=== PATIENT | male | born 1935 | race Caucasian/White ===

== ENCOUNTER → 2017-06-29 | Outpatient (CLI) | payer MEDICARE ==
--- NOTE | 2017-06-29 12:37 | RAD ---
Chest, 2 views, 06/29/2017: History: Cough, shortness of breath The heart is within normal limits in size. There is calcific plaquing of the aorta. The lungs are hyperexpanded. There is a mild streaky opacity in the left base posteriorly. This may be due to atelectasis or scarring. There is a minimal opacity projected over the right middle lobe medially on the PA view. This may correspond to a density projected over the anterior aspect of the heart on the lateral view, although a prominent epicardial fat pad could be producing that opacity. There are mild scattered degenerative changes in the thoracic spine. IMPRESSION: 1. Hyperexpansion of the lungs suggesting emphysema. 2. Mild bibasilar opacities compatible with scarring and/or atelectasis. A component of pneumonia or even a neoplastic etiology cannot be excluded. Radiographic and/or CT follow-up is suggested.
== END | disposition home or self-care (01) ==
LOC: PMG 10:05
PROVIDERS: ATTEND Physician Assistant
DX: R91.8 Other nonspecific abnormal finding of lung field (principal); I70.0 Atherosclerosis of aorta; M47.894 Other spondylosis, thoracic region
CPT/HCPCS: 71020

== ENCOUNTER 2017-12-28 08:10 | Emergency (ER) | payer MEDICARE ==
[~2017-12-28] VITALS: Ht 167.6 cm; Wt 70.3 kg
--- NOTE | 2017-12-28 08:43 | EKG ---
[address] [address] Test Date: 2017-12-28 Test Time: 08:36:43 Pat Name: BROWN KULKARNI Department: Room: Gender: M [employer] Hanger: : 1935 Requested By: DUNG JAIME Order Number: [id number] Reading MD: Lance Brewster MD Measurements Intervals [place] Rate: 96 P: 41 OR: 166 QRS: 65 QRSD: 94 T: 56 QT: 348 QTc: 441 Interpretive Statements SINUS RHYTHM [email or web address] Electronically Signed On 01-01-2018 14:10:39 CDT by Lance Brewster MD
--- NOTE | 2017-12-28 08:47 | PHYS DOC ---
Past History Past Medical History: Cancer, Hypothyroid Past Surgical History: Colectomy, Other Alcohol Use: None Drug Use: None Adult General Chief Complaint Chief Complaint: SHORTNESS OF BREATH [facility] HPI Patient is a very pleasant 82-year-old male presents for evaluation of shortness of breath. He states that over the last few days he has been getting somewhat short of breath but he was able to completely mow his lawn yesterday without difficulty. Today while getting into the shower this morning he became suddenly more short of breath and felt like he could not breathe and thought he was going to pass out. His was at home and states that his color did not change. He woke up this morning he felt fine. He has a distant history of colon cancer but is not currently being treated for any cancer and has no history of DVT or PE. He used to smoke but does not currently smoke and is not treated for COPD. He has no pleuritic chest wall pain or any chest pain. He denies productive cough, hemoptysis, chest pain, back pain, abdominal pain, fevers or chills, nausea or vomiting, diaphoresis or syncope. He is A&Ox 4, speaking in full sentences, and appears to be in no distress at this time. No recent long travel or surgery, no calf/lower leg pain. Review of Systems Review of Systems Constitutional: Denies fever or chills [] Eyes: Denies change in visual acuity, redness, or eye pain [] HENT: Denies nasal congestion or sore throat [] Respiratory: +cough and sob Cardiovascular: No additional information not addressed in HPI [] GI: Denies abdominal pain, nausea, vomiting, bloody stools or diarrhea [] : Denies dysuria or hematuria [] Musculoskeletal: Denies back pain or joint pain [] Integument: Denies rash or skin lesions [] Neurologic: Denies headache, focal weakness or sensory changes [] Endocrine: Denies polyuria or polydipsia [] All other systems were reviewed and found to be within normal limits, except as documented in this note. Allergies Allergies Allergies Coded Allergies Type Severity Reaction Last Updated Verified No Known Drug Allergies 12/28/17 No Physical Exam Physical Exam Constitutional: Well developed, well nourished, no acute distress, non-toxic appearance. [] HENT: Normocephalic, atraumatic, bilateral external ears normal, oropharynx moist, no oral exudates, nose normal. [] Eyes: PERRLA, EOMI, conjunctiva normal, no discharge. [] Neck: Normal range of motion, no tenderness, supple, no stridor. [] Cardiovascular:Heart rate regular rhythm, no murmur [] Lungs & Thorax: Bilateral breath sounds clear to auscultation [] Abdomen: Bowel sounds normal, soft, no tenderness, no masses, no pulsatile masses. [] Skin: Warm, dry, no erythema, no rash. [] Back: No tenderness, no CVA tenderness. [] Extremities: No tenderness, no cyanosis, no clubbing, ROM intact, no edema. [] Neurologic: Alert and oriented X 3, normal motor function, normal sensory function, no focal deficits noted. [] Psychologic: Affect normal, judgement normal, mood normal. [] Current Patient Data Vital Signs Vital Signs Date Time Temp Pulse Resp B/P (MAP) Pulse Ox O2 Delivery O2 Flow Rate FiO2 12/28/17 08:28 98.3 100 24 92 Room Air EKG EKG Normal sinus rhythm, rate of 96, incomplete right bundle-branch block is present , no acute ischemic findings noted, no STEMI, reviewed and interpreted by [facility] Radiology/[place] [address] IMAGING REPORT Signed PATIENT: BROWN KULKARNI ACCOUNT: [id number] : 1935 LOCATION: ER AGE: 82 SEX: M EXAM STATUS: REG ER ORD. PHYSICIAN: DUNG JAIME DO REASON: sob, elevated ddimer PROCEDURE: CT ANGIOGRAPHY CHEST PQRS Compliance Statement: One or more of the following individualized dose reduction techniques were utilized for this examination: 1. Automated exposure control 2. Adjustment of the mA and/or kV according to patient size 3. Use of iterative reconstruction technique CT ANGIOGRAPHY CHEST Clinical Indication: PT HAS HAD COUGH FOR ONE MONTH AND THIS LAST WEEK HAS BEEN SHORT OF BREATH, LABS SHOWED ELEVATED D DIMER Technique: Helical CT of the chest was performed after the administration of 75 cc Omnipaque 300 intravenous contrast according to PE protocol. Axial and coronal reconstructions were obtained. 3-D MIP images were constructed to better evaluate the pulmonary arteries. Findings: Pulmonary arteries are adequately opacified. There is no evidence of pulmonary embolism. No thoracic aortic dissection. Trace pericardial fluid. Cardiac size normal. Mild mitral annular calcification. Coronary artery disease. Mild bilateral hilar adenopathy. Subcentimeter mediastinal lymph nodes. There are retained secretions or mucous in the trachea. Mild peribronchial thickening in the basilar lower lobes. Mild right lower lobe atelectasis. Anterior right upper lobe there is peribronchial thickening and tree-in-bud opacities. There are 2 subpleural subcentimeter nodular opacities in the lingula, image 82. 5 mm nodule in the subpleural left lower lobe, image 114. Calcified granulomas right lung. 13 mm right adrenal adenoma. 12 mm left adrenal adenoma. Degenerative spondylosis of the thoracic spine. IMPRESSION: 1. There is no CT evidence of pulmonary embolus. 2. Bilateral lower lobe bronchitis and anterior right upper lobe bronchitis and bronchiolitis. 3. There are a few nodular opacities in the lungs that may be infectious/inflammatory. Recommend noncontrast CT chest follow-up in 3 months when patient is asymptomatic. 4. Mild bilateral hilar adenopathy, may be reactive. Suggest attention on follow-up. 5. Small bilateral adrenal adenomas. Electronically signed by: Skinny Clifton MD (12/28/2017 10:01 AM) [id number] Course & Med Decision Making Course & Med Decision Making Pertinent Labs and Imaging studies reviewed. (See chart for details) @1005 - Patient updated on all lab and imaging results. His glucose is noted to be slightly elevated so informed him that this may be evidence of prediabetes. CT suggests some bronchitis versus bronchiolitis. The patient will go home and a prescription for albuterol, prednisone, and azithromycin. Patient to follow up with his primary care physician in the next 2-3 days. Advised the patient to return to the emergency Department immediately for difficult breathing, new or worsening symptoms. Workup today fails to reveal any emergent pathology and the patient is stable for discharge. Differential diagnosis included myocardial infarction, pericarditis, pneumonia, bronchitis, PE, heart failure, and anemia Dragon Disclaimer Dragon Disclaimer This electronic medical record was generated, in whole or in part, using a voice recognition dictation system. Departure Departure: Impression: Primary Impression: Bronchitis Additional Impression: Hyperglycemia Disposition: HOME, SELF-CARE Condition: STABLE Referrals: ANEUDY SHARIF (PCP) Patient Instructions: Bronchitis, Hyperglycemia Additional Instructions: Take the prescribed medications as directed to help with your bronchitis. Her blood sugar was slightly elevated today and he should follow-up with your primary care physician to have this repeated to make sure that you are not prediabetic. Return to the emergency Department immediately for difficult breathing, new or worsening symptoms. Scripts Azithromycin (AZITHROMYCIN TABLET) 250 Mg Tablet 250 MG PO DAILY for bronchitis for 5 Days, #5 TAB 0 Refills Prov: DUNG JAIME DO 12/28/17 Albuterol Sulfate (PROAIR HFA INHALER) 8.5 Gm Hfa.aer.ad 1 PUFF INH PRN Q6HRS PRN for SHORTNESS OF BREATH for 5 Days, #1 INHALER 0 Refills Prov: DUNG JAIME DO 12/28/17 Prednisone (PREDNISONE) 20 Mg Tablet 1 TAB PO DAILY for 5 Days, #5 TAB Prov: DUNG JAIME DO 12/28/17 Problem Qualifiers DUNG JAIME DO Dec 28, 2017 08:47
[2017-12-28 09:10] LABS: BASO # 0.1 x10^3/uL (0.0-0.2); BASO % 1 % (0-3); EOS # 0.3 x10^3/uL (0.0-0.7); EOS % 2 % (0-3); HEMATOCRIT 46.3 % (39.0-53.0); LYMPH % 8 % (24-48); MEAN CORPUSCULAR HEMOGLOBIN 32 pg (25-35); MEAN CORPUSCULAR HGB CONC 35 g/dL (31-37); MEAN CORPUSCULAR VOLUME 92 fL (79-100); MONO # 0.7 x10^3/uL (0.0-1.1); MONO % 5 % (0-9); NEUT # 10.5 x10^3uL (1.8-7.7); NEUT % 84 % (31-73); PLATELET COUNT 275 x10^3/uL (140-400); RED BLOOD COUNT 5.02 x10^6/uL (4.30-5.70); RED CELL DISTRIBUTION WIDTH 13.7 % (11.5-14.5); WHITE BLOOD COUNT 12.6 x10^3/uL (4.0-11.0)
--- NOTE | 2017-12-28 09:19 | RAD ---
Chest radiograph 12/28/2017 8:52 AM INDICATION: Shortness of breath COMPARISON: June 29, 2017 TECHNIQUE: Frontal and lateral views of the chest are provided. FINDINGS: The cardiomediastinal silhouette is within normal limits. There are no pleural effusions. Mild interstitial prominence may be seen with early pulmonary vascular congestion versus interstitial pneumonitis. There is no pneumothorax. The lungs are clear. No significant osseous abnormality is identified. IMPRESSION: Mild interstitial prominence may be seen with early pulmonary vascular congestion versus interstitial pneumonitis. Electronically signed by: Simin Cabezas MD (12/28/2017 9:16 AM) [facility]
[2017-12-28 09:25] LABS: ALBUMIN 3.4 g/dL (3.4-5.0); ALBUMIN/GLOBULIN RATIO 0.9 (1.0-1.7); CREATININE 1.1 mg/dL (0.7-1.3); GFR 63.8; TOTAL BILIRUBIN 0.8 mg/dL (0.2-1.0); TOTAL PROTEIN 7.4 g/dL (6.4-8.2)
[2017-12-28] MEDS ORDERED: IOHEXOL 300 MG/ML 75 ML VIAL. IV ONE (09:30)
--- NOTE | 2017-12-28 10:05 | RAD ---
PQRS Compliance Statement: One or more of the following individualized dose reduction techniques were utilized for this examination: 1. Automated exposure control 2. Adjustment of the mA and/or kV according to patient size 3. Use of iterative reconstruction technique CT ANGIOGRAPHY CHEST Clinical Indication: PT HAS HAD COUGH FOR ONE MONTH AND THIS LAST WEEK HAS BEEN SHORT OF BREATH, LABS SHOWED ELEVATED D DIMER Technique: Helical CT of the chest was performed after the administration of 75 cc Omnipaque 300 intravenous contrast according to PE protocol. Axial and coronal reconstructions were obtained. 3-D MIP images were constructed to better evaluate the pulmonary arteries. Findings: Pulmonary arteries are adequately opacified. There is no evidence of pulmonary embolism. No thoracic aortic dissection. Trace pericardial fluid. Cardiac size normal. Mild mitral annular calcification. Coronary artery disease. Mild bilateral hilar adenopathy. Subcentimeter mediastinal lymph nodes. There are retained secretions or mucous in the trachea. Mild peribronchial thickening in the basilar lower lobes. Mild right lower lobe atelectasis. Anterior right upper lobe there is peribronchial thickening and tree-in-bud opacities. There are 2 subpleural subcentimeter nodular opacities in the lingula, image 82. 5 mm nodule in the subpleural left lower lobe, image 114. Calcified granulomas right lung. 13 mm right adrenal adenoma. 12 mm left adrenal adenoma. Degenerative spondylosis of the thoracic spine. IMPRESSION: 1. There is no CT evidence of pulmonary embolus. 2. Bilateral lower lobe bronchitis and anterior right upper lobe bronchitis and bronchiolitis. 3. There are a few nodular opacities in the lungs that may be infectious/inflammatory. Recommend noncontrast CT chest follow-up in 3 months when patient is asymptomatic. 4. Mild bilateral hilar adenopathy, may be reactive. Suggest attention on follow-up. 5. Small bilateral adrenal adenomas. Electronically signed by: Skinny Clifton MD (12/28/2017 10:01 AM) [id number]
[2017-12-28] MEDS ORDERED: AZIT250T6 PO (10:14)
[2017-12-28] MEDS ORDERED: PRED20TA PO (10:14)
[2017-12-28] MEDS ORDERED: ALBU8.5H8 INH (10:14)
[2017-12-28 10:35] VITALS: BP 158/72
== END 2017-12-28 10:30 | disposition home or self-care (01) ==
LOC: ER 08:10
DX: J40 Bronchitis, not specified as acute or chronic (principal); R73.9 Hyperglycemia, unspecified; E03.9 Hypothyroidism, unspecified
CPT/HCPCS: 36415; 71046; 71275; 80053; 82553; 83880; 84484; 85025; 85379; 93005; 99285-25

== ENCOUNTER → 2018-05-23 | Outpatient (CLI) | payer MEDICARE ==
[~2018-05-23] MED LIST: ALBU8.5H8 INH; AZIT250T6 PO; PRED20TA PO
--- NOTE | 2018-05-23 13:13 | RAD ---
CT CHEST WO CONTRAST dated 05/23/2018 12:00 AM Indication: Abnormal chest CT follow-up pulmonary nodules and hilar adenopathy.follow up abnormal ct chest. Comparison: 03/30/2018. Technique: Contiguous axial imaging the chest performed without the administration of intravenous contrast. One or more of the following individualized dose reduction techniques were utilized for this examination: 1. Automated exposure control 2. Adjustment of the mA and/or kV according to patient size 3. Use of iterative reconstruction technique Findings: Heart size within normal limits. Tiny pericardial effusion. Scattered coronary calcifications. No mediastinal, hilar or axillary lymphadenopathy. Thyroid gland unremarkable. Previous described enlarged hilar lymph nodes are not apparent on this noncontrast exam. The central airways are patent. Mild diffuse bronchial wall thickening. Small subpleural nodules in the right upper lobe, right middle lobe and left lower lobe measure 2 to 3 mm in size age, stable from prior study. There are a few additional tiny subpleural nodules in the left upper lobe/lingula, unchanged. Mild emphysema. No new parenchymal nodule or mass. No pleural effusion. Limited images of the upper abdomen unremarkable. No acute bony abnormality. Multilevel spondylosis. IMPRESSION: 1. Small noncalcified pulmonary nodules scattered throughout both lungs, nonspecific but unchanged from prior study. 2. Interval improvement in reticular nodular tree-in-bud opacities in the right upper lobe and right middle lobe and lingula. There is persistent mild bronchial wall thickening and a chronic bronchial inflammatory process cannot be excluded. 3. Coronary artery calcifications. 4. Mild emphysema. Electronically signed by: Patrice Hassan MD (05/23/2018 1:10 PM) [id number]
--- NOTE | 2018-05-23 14:34 | RAD ---
Five-view lumbar spine 05/23/2018 CLINICAL INDICATION: Left leg pain COMPARISON: None. FINDINGS: There are 5 nonrib-bearing lumbar-type vertebral bodies with the 1st considered L1. Diffuse bony demineralization. Vertebral body heights are maintained. Multilevel lumbar spondylosis, greatest to a moderate degree L1-L2 and L4-L5 with disc space narrowing, endplate sclerosis and marginal osteophyte formation. Lower lumbar facet hypertrophy. IMPRESSION: 1. Multilevel lumbar spondylosis, greatest to a moderate degree, as detailed above. 2. Osteopenia. Electronically signed by: Robby Love MD (05/23/2018 2:31 PM) [id number]
== END | disposition home or self-care (01) ==
LOC: PMG 11:56
PROVIDERS: ATTEND Physician Assistant Medical
DX: M47.896 Other spondylosis, lumbar region (principal); I25.10 Atherosclerotic heart disease of native coronary artery without angina pectoris; J43.8 Other emphysema; M85.88 Other specified disorders of bone density and structure, other site; M79.605 Pain in left leg; Z87.891 Personal history of nicotine dependence
CPT/HCPCS: 71250; 72110